=== PATIENT | female | born 1940 ===

== ENCOUNTER 2019-03-08 11:32 | Day surgery (SDC) | payer MEDICARE, OTHER ==
[~2019-03-08] VITALS: Ht 152.4 cm; Wt 72.9 kg
[~2019-03-08 11:32] MED LIST: ATOR20; Imitrex50 MG PO; LISI20 PO; Lovastatin20 MG PO; METF500; METF500 PO; NAPR500 PO; Omeprazole20 M1; TRET.1TC; VENL150ER
== END 2019-03-08 13:25 | disposition home or self-care (01) ==
LOC: ORSCSDS 11:32
PROVIDERS: Internal Medicine Gastroenterology
PROC: 0DJD8ZZ Inspection of Lower Intestinal Tract, Via Natural or Artificial Opening Endoscopic (ICD-10-PCS; principal; 2019-03-08 12:45)
DX: Z12.11 Encounter for screening for malignant neoplasm of colon (principal); K57.30 Diverticulosis of large intestine without perforation or abscess without bleeding; K64.8 Other hemorrhoids; I10 Essential (primary) hypertension; E78.00 Pure hypercholesterolemia, unspecified; E11.9 Type 2 diabetes mellitus without complications; Z79.84 Long term (current) use of oral hypoglycemic drugs; Z79.899 Other long term (current) drug therapy
CPT/HCPCS: 82947; J2704; J7120

== ENCOUNTER 2020-04-11 07:27 | Day surgery (SDC) | payer MEDICARE, OTHER ==
[~2020-04-11] VITALS: Ht 152.4 cm; Wt 71.0 kg
[~2020-04-11 07:27] MED LIST changes: +Ativan1 MG PO; +NAPR500EC PO; +OMEPRAZOLE20 M1 PO; +SUMA25 PO; +VENL75ER PO
--- NOTE | 2020-04-11 07:58 | NUR ---
04/11/20 0758 Jadon Brown CALL LIGHT WITHIN REACH
[2020-04-11] MEDS ORDERED: METF500 PO (08:00)
== END 2020-04-11 09:42 | disposition home or self-care (01) ==
LOC: ORSCSDS 07:27
PROVIDERS: Ophthalmology
PROC: 08RJ3JZ Replacement of Right Lens with Synthetic Substitute, Percutaneous Approach (ICD-10-PCS; principal; 2020-04-11 08:45)
DX: H25.11 Age-related nuclear cataract, right eye (principal); I10 Essential (primary) hypertension; K21.9 Gastro-esophageal reflux disease without esophagitis; Z79.899 Other long term (current) drug therapy
CPT/HCPCS: 82947; J2001; J2250; J3010; J3301; J7040; V2632